=== PATIENT | female | born 2000 | race African-American/Black ===

== ENCOUNTER 2021-09-09 00:38 | Emergency (ER) | payer MEDICAID ==
[~2021-09-09] VITALS: Ht 154.9 cm; Wt 49.0 kg
[2021-09-09 01:07] VITALS: BP 154/91
== END 2021-09-09 02:27 ==
LOC: ER 00:38
DX: S66.811A Strain of other specified muscles, fascia and tendons at wrist and hand level, right hand, initial encounter (principal); X58.XXXA Exposure to other specified factors, initial encounter; Y93.89 Activity, other specified; Y92.89 Other specified places as the place of occurrence of the external cause; Y99.8 Other external cause status; J45.909 Unspecified asthma, uncomplicated
CPT/HCPCS: 99283